=== PATIENT | male | born 1965 | race Hispanic/Latino ===

== ENCOUNTER 2019-01-09 17:08 | Emergency (ER) | payer SELFPAY ==
[~2019-01-09] VITALS: Ht 154.9 cm; Wt 59.0 kg
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
[2019-01-09] MEDS ORDERED: ONDANSETRON HCL INJ 2MG/ML 2ML 2 MG/ML VIAL IV STA (17:30)
[2019-01-09] MEDS ORDERED: IOPAMIDOL 370 MG/ML 200 ML INFUS..BTL INJ ONE (17:32)
[2019-01-09] MEDS ORDERED: SODIUM CHLORIDE 0.9% 50ML 50 ML ONE (17:33)
[2019-01-09] MEDS ORDERED: MORPHINE SULFATE INJ 4 MG/ML INJ 1ML IV ONE (18:00)
[2019-01-09 18:12] VITALS: BP 137/70
--- NOTE | 2019-01-09 18:29 | Diagnostic Imaging Report ---
EXAM: CT Pelvis WITH contrast INDICATION: ^[id number] ^[id number] COMPARISON: None. TECHNIQUE: The pelvis was scanned utilizing a multidetector helical after administration of IV contrast. Coronal and sagittal reformations were obtained. Routine protocol was performed. Scan was performed when during portal venous phase. IV CONTRAST: 100 mL of Isovue-370 ORAL CONTRAST: None [facility] DOSE: Total DLP: 296.2 mGy*cm Estimated effective dose: (DLP x 0.015 x size factor) mSv COMPLICATIONS: None FINDINGS: LINES and TUBES: None. GI TRACT: No abnormal distention, wall thickening, or evidence of bowel obstruction. Appendix is normal. PELVIC ORGANS/BLADDER: Unremarkable. LYMPH NODES: No lymphadenopathy. VESSELS: Unremarkable. PERITONEUM / RETROPERITONEUM: No free air or fluid. BONES: Unremarkable. SOFT TISSUES: 2.2 x 1.7 cm perianal abscess at midline on series 2, image 40. This is adjacent to the most distal rectum. There is no extension of the abscess in the intrapelvic cavity. IMPRESSION: Small perianal abscess with no extension in the pelvic cavity. Signed by: Dr. Renetta Sierra M.D. on 01/09/2019 6:26 PM
== END 2019-01-09 18:36 | disposition home or self-care (01) ==
LOC: FSED 17:08
DX: L02.31 Cutaneous abscess of buttock (principal)
CPT/HCPCS: 72193; 80053; 85025; 99283; J2270; J2405; Q9967